=== PATIENT | female | born 1965 | race Caucasian/White ===

== ENCOUNTER 2018-08-10 08:05 | Day surgery (SDC) | payer OTHER ==
[~2018-08-10 08:05] MED LIST: ASA81 MG PO; BUSPAR PO; FENOFIBRATE67 MG PO; LIPITOR20 MG PO; RELAFEN PO; SYNTHROID175 MCG PO; ZANTAC150 M3 PO
== END 2018-08-10 17:20 | disposition home or self-care (01) ==
LOC: CIR.AMB 08:05
DX: S52.572A Other intraarticular fracture of lower end of left radius, initial encounter for closed fracture (principal)
CPT/HCPCS: 25609; 25118; 25280; C1776